=== PATIENT | male | born 1985 | race African-American/Black ===

== ENCOUNTER 2018-12-20 08:18 | Emergency (ER) | payer OTHER ==
[~2018-12-20] VITALS: Wt 76.8 kg
[~2018-12-20 08:18] MED LIST: IBUP-1542 PO
[2018-12-20 08:23] VITALS: BP 108/80; PULSE 92; RESP 20
== END 2018-12-20 10:11 | disposition home or self-care (01) ==
LOC: FTE 08:18
DX: R07.89 Other chest pain (principal)
CPT/HCPCS: 81003; 93005; Z7502